=== PATIENT | male | born 1965 | race Caucasian/White ===

== ENCOUNTER → 2016-11-04 | Outpatient (CLI) | payer OTHER ==
[~2016-11-04] MED LIST: CINN500C9 PO; DRIS50002 PO; EXCETAB80 PO; EXTR500C4 PO; GLIP5TAB8 PO; GLUC500T3 OR; GLUC850T OR; IBUP600T OR; IBUP600T26 PO; LISI10TA4 PO; METF1000 PO; MULTIVIT PO; OMEG100011 PO; PRIL40CA OR; VIT D 4000 PO; VITA-130 PO; VITA500C OR
[2016-11-04 12:16] LABS: ALBUMIN/GLOBULIN RATIO 1.14 (1.00-1.93); ALKALINE PHOSPHATASE 101 U/L (45-117); ALT/SGPT 117 U/L (12-78); ANION GAP 10 MEQ/L (8-16); AST/SGOT 47 U/L (15-37); BILIRUBIN,TOTAL 0.4 MG/DL (0.2-1.0); BLOOD UREA NITROGEN 18 MG/DL (7-18); CALCIUM LEVEL 8.8 MG/DL (8.5-10.1); CARBON DIOXIDE LEVEL 27 MEQ/L (21-32); CHLORIDE LEVEL 104 MEQ/L (98-107); CHOLESTEROL LEVEL 124 MG/DL (<200); CREATININE FOR GFR 0.65 MG/DL (0.70-1.30); GLOMERULAR FILTRATION RATE > 60.0 (>56); GLUCOSE, FASTING 81 MG/DL (70-105); POTASSIUM SERUM 4.1 MEQ/L (3.5-5.1); SODIUM LEVEL 141 MEQ/L (136-145); TOTAL PROTEIN 7.5 GM/DL (6.4-8.2); TRIGLYCERIDES LEVEL 121 MG/DL (<150)
== END | disposition home or self-care (01) ==
LOC: M LRY 08:56
PROVIDERS: ATTEND Emergency Medicine
DX: E11.9 Type 2 diabetes mellitus without complications (principal); I10 Essential (primary) hypertension; E78.2 Mixed hyperlipidemia; E55.9 Vitamin D deficiency, unspecified

== ENCOUNTER → 2017-01-27 | Outpatient (CLI) | payer OTHER ==
[2017-01-27 19:04] LABS: ALBUMIN 4.1 GM/DL (3.2-5.2); ALBUMIN/GLOBULIN RATIO 1.14 (1.00-1.93); ALKALINE PHOSPHATASE 94 U/L (45-117); ALT/SGPT 97 U/L (12-78); ANION GAP 7 MEQ/L (8-16); AST/SGOT 43 U/L (15-37); BILIRUBIN,TOTAL 0.5 MG/DL (0.2-1.0); BLOOD UREA NITROGEN 17 MG/DL (7-18); CALCIUM LEVEL 9.1 MG/DL (8.5-10.1); CARBON DIOXIDE LEVEL 30 MEQ/L (21-32); CHLORIDE LEVEL 107 MEQ/L (98-107); CHOLESTEROL LEVEL 129 MG/DL (<200); CREATININE FOR GFR 0.65 MG/DL (0.70-1.30); GLOMERULAR FILTRATION RATE > 60.0 (>56); GLUCOSE, FASTING 77 MG/DL (70-105); POTASSIUM SERUM 4.1 MEQ/L (3.5-5.1); SODIUM LEVEL 144 MEQ/L (136-145); TOTAL PROTEIN 7.7 GM/DL (6.4-8.2); TRIGLYCERIDES LEVEL 131 MG/DL (<150)
== END ==
LOC: M LRY 11:32
PROVIDERS: ATTEND Emergency Medicine
DX: E11.9 Type 2 diabetes mellitus without complications (principal); I10 Essential (primary) hypertension; E78.2 Mixed hyperlipidemia

== ENCOUNTER → 2018-03-15 | Outpatient (CLI) | payer OTHER ==
[2018-03-15 18:47] LABS: ALBUMIN 4.1 GM/DL (3.2-5.2); ALBUMIN/GLOBULIN RATIO 1.21 (1.00-1.93); ALKALINE PHOSPHATASE 88 U/L (45-117); ALT/SGPT 139 U/L (12-78); ANION GAP 7 MEQ/L (8-16); AST/SGOT 56 U/L (7-37); BILIRUBIN,TOTAL 0.6 MG/DL (0.2-1.0); BLOOD UREA NITROGEN 15 MG/DL (7-18); CALCIUM LEVEL 8.7 MG/DL (8.5-10.1); CARBON DIOXIDE LEVEL 28 MEQ/L (21-32); CHLORIDE LEVEL 104 MEQ/L (98-107); CHOLESTEROL LEVEL 113 MG/DL (<200); CREATININE FOR GFR 0.65 MG/DL (0.70-1.30); GLOMERULAR FILTRATION RATE > 60.0 (>56); GLUCOSE, FASTING 83 MG/DL (70-100); HDL CHOLESTEROL 25 MG/DL (>40); NON-HDL-C 88 MG/DL; POTASSIUM SERUM 3.9 MEQ/L (3.5-5.1); SODIUM LEVEL 139 MEQ/L (136-145); TOTAL PROTEIN 7.5 GM/DL (6.4-8.2); TRIGLYCERIDES LEVEL 165 MG/DL (<150)
[2018-03-15 19:09] LABS: ESTIMATED AVERAGE GLUCOSE 186 MG/DL (60-110); HEMOGLOBIN A1c 8.1 %
== END ==
LOC: M LRY 10:40
DX: E11.9 Type 2 diabetes mellitus without complications (principal); I10 Essential (primary) hypertension; E78.2 Mixed hyperlipidemia
CPT/HCPCS: 80053

== ENCOUNTER → 2018-07-01 | Outpatient (REF) | payer OTHER ==
[2018-07-06 10:28] LABS: HEPATITIS C VIRUS ABY INDEX 0.1 INDEX (<0.8)
[2018-07-06 10:28] LABS: HEPATITIS A ANTIBODY IGM NEGATIVE (NEGATIVE); HEPATITIS B CORE ANTIBODY IGM NEGATIVE (NEGATIVE); HEPATITIS B SURFACE ANTIGEN NEGATIVE (NEGATIVE)
== END ==
LOC: M LAB REF 14:48
DX: R74.8 Abnormal levels of other serum enzymes (principal)

== ENCOUNTER 2018-09-05 13:34 | Emergency (ER) | payer OTHER | END 2018-09-05 14:51 | disposition home or self-care (01) | LOC: M ED 13:34 | DX: S00.03XA Contusion of scalp, initial encounter (principal); W01.0XXA Fall on same level from slipping, tripping and stumbling without subsequent striking against object, initial encounter; Y92.410 Unspecified street and highway as the place of occurrence of the external cause | CPT/HCPCS: 70450 ==

== ENCOUNTER → 2019-08-19 | Outpatient (CLI) | payer OTHER ==
[~2019-08-19] MED LIST changes: -DRIS50002 PO; +DRIS50003 PO; +IBUP-1022 PO; -IBUP600T26 PO; -METF1000 PO; +METF10004 PO; -VITA-130 PO; +VITA500T PO
--- NOTE | 2019-08-22 16:51 | SLEEPCENT ---
DATE OF PROCEDURE: 08/19/2019 ORDERED BY: KIMBERLEY Tobar Nocturnal polysomnography was performed for the titration of pressure therapy in this patient with a history of obstructive sleep apnea syndrome. For testing a ResMed F20 AirTouch full face mask of medium size was used, 4 cm of water pressure were applied to the circuit and the lights were extinguished. 7 hours and 58 minutes of data were reviewed. There were 450 minutes of sleep identified. Sleep latency was short at 2 minutes. Rapid eye movement (REM) latency was short at 57 minutes. Sleep architecture was good with five REM cycles. Overall sleep efficiency 95.8%. The patient's electrocardiogram showed a sinus rhythm with an average heart rate of 64 beats per minute. EEG showed normal waveforms for awake and sleep. Persistence of respiratory events prompted an increase in continuous positive airway pressure (CPAP) despite optimal mask fit and minimal air leak. The patient was changed to a bilevel device. Pressure was advanced to a maximal pressure of 22 over 18. Some mild hypopneic events were seen, but no significant oxygen desaturations were documented at this level. Some activity was noted throughout the study in the limb EMG leads but limb movement arousal index was only 4.3. IMPRESSION: Obstructive sleep apnea syndrome (G47.33). RECOMMENDATIONS: Nightly use of pressure therapy using a bilevel device, inspiratory 22 over expiratory 18.
== END ==
LOC: M SLEEP 20:00
PROVIDERS: ATTEND Nurse Practitioner Family
DX: G47.33 Obstructive sleep apnea (adult) (pediatric) (principal)

== ENCOUNTER → 2019-09-25 | Outpatient (REF) | payer OTHER | LOC: M LAB REF 13:08 | PROVIDERS: ATTEND Podiatrist | DX: L03.031 Cellulitis of right toe (principal) ==

== ENCOUNTER → 2019-10-16 | Outpatient (CLI) | payer OTHER ==
--- NOTE | 2019-10-16 10:10 | REP ---
Clinical: Right lower extremity pain and swelling . Technique: Cordon scale and color Doppler evaluation using linear high frequency transducer. Findings: Ultrasound examination of the right lower extremity deep venous structures from the common femoral vein to the popliteal vein demonstrates normal compressibility flow and wave patterns in response to respiration and augmentation. There is no evidence for deep venous thrombosis. Impression: No evidence for deep venous thrombosis. Electronically Signed by Arpan Flores MD 10/16/2019 10:02 A
== END ==
LOC: M RAD 09:06
PROVIDERS: ATTEND Podiatrist
DX: M79.604 Pain in right leg (principal)

== ENCOUNTER → 2019-12-16 | Outpatient (CLI) | payer OTHER ==
--- NOTE | 2019-12-17 08:32 | REP ---
MRI RIGHT ANKLE: TECHNIQUE: Sagittal proton density, STIR, axial proton density fat sat, T1, coronal proton density, STIR. The Achilles tendon is intact. Anterior tibial, peroneal, and flexor hallucis longus tendons are intact. There is mild fluid surrounding the flexor digitorum longus tendon suggesting mild tenosynovitis. There is moderate fluid surrounding the posterior tibial tendon suggesting tenosynovitis. In addition, the distal posterior tibial tendon demonstrates increased signal on T2-weighted images at its insertion suggesting a partial tear. Anterior and posterior talofibular, calcaneofibular, tibiofibular, and deltoid ligaments are intact. Plantar fascia is unremarkable, plantar tendon is intact. Ill-defined soft tissue edema is seen posteromedially. Mild fluid is seen along the posterior tibiotalar joint. Nonspecific marrow edema is seen in the medial aspect of the distal tibia as well as throughout the talus. There is also marrow edema in the medial and anterior calcaneus. There is scattered subcortical marrow edema in the navicular and cuneiform bones. No chondral defect is seen along the talar dome. IMPRESSION: There appears to be a partial tear of the distal posterior tibial tendon at its insertion onto the navicular. There appears to be associated tenosynovitis. There is probable tenosynovitis of flexor digitorum longus tendon. Nonspecific marrow edema is seen in the medial aspect of the distal tibia, throughout the talus, and the medial and anterior calcaneus, and also in a subcortical location in the navicular and cuneiform bones. Diffuse soft tissue edema is noted posteromedially. Electronically Signed by David Cordon MD 12/17/2019 06:19 P
== END ==
LOC: M RAD 08:43
PROVIDERS: ATTEND Podiatrist
DX: M66.371 Spontaneous rupture of flexor tendons, right ankle and foot (principal)

== ENCOUNTER → 2020-03-19 | Outpatient (CLI) | payer OTHER ==
[~2020-03-19] MED LIST changes: +ACET160S3 PO; +INVO300T PO; +MAPA500C PO; +MULTCAP PO; +OZEM2INJ2 SC; +PROTPAK PO; +VENTAER INH; +VITA-243 PO; -VITA500T PO
== END ==
LOC: M LABSMTC 09:54
PROVIDERS: ATTEND Anesthesiology
DX: Z01.818 Encounter for other preprocedural examination (principal); Z11.59 Encounter for screening for other viral diseases
CPT/HCPCS: C9803; U0003

== ENCOUNTER 2020-03-22 07:36 | Day surgery (SDC) | payer OTHER ==
[~2020-03-22] VITALS: Ht 180.3 cm; Wt 122.5 kg
[~2020-03-22 07:36] MED LIST changes: +BACITRACIN PWD 50,000 UNITS VIAL As Ordered ONE; +BUPIVACAINE HCL 0.5% 30 ML VIAL As Ordered ONE; +LIDOCAINE 2% MDV 20ML VIAL As Ordered ONE; +LR 1,000 ML IV SCH; -MAPA500C PO; +NEOSPORIN GU IRRIG 20 ML VIAL As Ordered ONE; +ceFAZolin SOD 1 GM in D5W MINI-BAG PLUS 50 ML IV ONE; +ceFAZolin SOD 2 GM in IV 1 EA IV ONE; +dexameTHASONE 4 MG/ML 1ML VIAL (J1100 PER 1MG) As Ordered ONE
[2020-03-22] MEDS ORDERED: MAPA500C PO (08:02)
[2020-03-22] MEDS ORDERED: LIDOCAINE 2% 100MG/5ML SDV (FOR ANES.) As Ordered ONE (08:20)
[2020-03-22] MEDS ORDERED: propofoL 200 MG/20 ML VIAL As Ordered ONE ×3 (08:20→10:38)
[2020-03-22] MEDS ORDERED: MIDAZOLAM INJ 2MG/2ML VIAL (J2250 PER 1MG) As Ordered ONE (08:21)
[2020-03-22] MEDS ORDERED: fentaNYL 100 MCG/2 ML INJECTION (J3010) As Ordered ONE (08:21)
[2020-03-22] MEDS ORDERED: ACETAMINOPHEN 1000MG 100ML IV BTL (OFIRMEV) (J0131 PER 10MG) As Ordered ONE (09:59)
[2020-03-22] MEDS ORDERED: KETOROLAC 60 MG/2 ML VIAL As Ordered ONE (10:47)
[2020-03-22] MEDS ORDERED: ONDANSETRON 4MG/2ML VIAL As Ordered ONE (10:47)
[2020-03-22 12:25] VITALS: BP 122/73
--- NOTE | 2020-03-22 16:45 | REP ---
REASON: Status post bunionectomy. Three images were obtained. Fixation pins are seen affixing and fusing digits 2 through 4, inclusive. There is a single screw affixing a derotational osteotomy site safety manager of the 1st metatarsal. The examination is limited by overlying casting material. Electronically Signed by Gaurang Haley DO 03/22/2020 05:13 P
--- NOTE | 2020-03-27 12:23 | RO ---
DATE OF PROCEDURE: 03/22/2020 PREPROCEDURE DIAGNOSES: Hallux valgus metatarsus primus varus deformity, right foot. Hammertoe deformity digits 2, 3, 4, and 5 right foot. POSTPROCEDURE DIAGNOSES: Hallux valgus metatarsus primus varus deformity, right foot. Hammertoe deformity digits 2, 3, 4, and 5 right foot. PROCEDURES PERFORMED: 1. Niki bunionectomy with internal screw fixation. 2. Proximal interphalangeal joint arthroplasty, 2nd toe right foot. 3. Proximal interphalangeal joint arthroplasty, 3rd toe right foot. 4. Proximal interphalangeal joint arthroplasty, 4th toe right foot. 5. Proximal interphalangeal joint arthroplasty 5th toe right foot. 6. Extensor capsulotomy 2nd metatarsophalangeal joint right foot. 7. Extensor capsulotomy 3rd metatarsophalangeal joint right foot. 8. Extensor capsulotomy 4th metatarsophalangeal joint right foot. SURGEON: Dr. Samuel Chacon. TIN POURER: None. ANESTHESIA: Local with monitored anesthesia care (MAC). HEMOSTASIS: Ankle pneumatic tourniquet at 225 mmHg for 82 minutes. HARDWARE UTILIZED: Arthrex headless 3.0 x 30 mm compression screw and 0.045 wire times three. DESCRIPTION OF PROCEDURE: On 03/22/2020, this 54-year-old male was taken from his hospital room to the operating room and placed on the operating room table in supine position. Following the induction of IV sedation and local and regional anesthesia, the right lower extremity was prepped and draped in the usual aseptic manner. Attention was directed to the patient's right foot where there was noted to be a moderate hallux valgus deformity. At this time, the following procedure was performed. NIKI BUNIONECTOMY, INTERNAL SCREW FIXATION 3.0 MM X 30 MM X 1 RIGHT FOOT: Attention was directed to the patient's right foot. There was noted to be a hallux valgus deformity. At this time, a 7 cm incision was placed over the first metatarsophalangeal joint. The incision was deepened to the subcutaneous tissues, and all coursing venous tributaries were identified, underscored, clamped, cut ligated, and electrocoagulated as necessary. A linear capsulotomy was performed in the same plane as the original skin incision. The capsule and periosteal structures were then dissected free in one continuous layer, dorsally, medially and laterally, thus creating a capsular periosteal type envelope. This delivered into view the hypertrophied medial eminence of the first metatarsal which was osteotomized from distal to plantar through and through. Attention was directed into the medial surface of the 1st intermetatarsal and the following Niki osteotomy was performed. This was with a long plantar wing and a short dorsal wing. Attention was directed to the distal metaphysis where this V-shaped osteotomy was created from medial to lateral through and through and this was transposed approximately 30% width of the shaft of the 1st metatarsal and then fixated with a 3.0 x 30 mm headless compression screw. The osteotomy was noted to be stable in all three cardinal planes. The redundant cortical spike was then osteotomized from the dorsal to plantar, through and through. The wound was flushed with copious amounts of dilute bacitracin, neomycin and polymyxin B solution. Attention was directed toward closure where the capsular structures were coapted and maintained using #2-0 Monocryl in a simple interrupted type fashion. The subcutaneous tissues were coapted and maintained using #4-0 Monocryl in a simple interrupted type fashion. Skin incisions were coapted and maintained using #4-0 Prolene in a simple interrupted fashion. Attention was then directed to the patient's 2nd toe where the following procedure was performed. PROXIMAL INTERPHALAGEAL JOINT ARTHROPLASTY WITH EXTERNAL WIRE FIXATION 0.045 TIMES ONE, 2ND TOE RIGHT FOOT: Attention was directed to the patient's 2nd toe where there was noted to be a hammertoe deformity. At this time, a 3 cm incision was placed over the proximal interphalangeal joint. The incision was deepened to the subcutaneous tissues and all coursing tributaries were identified, underscored, clamp, cut, ligated and electrocoagulated as necessary. A linear tenotomy and capsulotomy was then performed at the proximal interphalangeal joint. The medial and lateral collateral ligaments are sharply dissected free from the head of the proximal phalanx. Utilizing a power saw and osteotomy was performed in the anatomical length of the proximal from dorsal to planar, medial to lateral through and through. Attention was directed to the patient's middle phalanx where the cartilage was removed from dorsal to planar through and through. This was extirpated from the wound. The wound was flushed with copious amount of dilute bacitracin, neomycin and polymyxin B solution. There was still noted to be a contracture at the metatarsophalangeal joint. Therefore, the following procedure was performed. EXTENSOR CAPSULOTOMY 2ND METATARSOPHALANGEAL JOINT RIGHT FOOT: Attention was directed to the patient's metatarsophalangeal joint where a stab incision was placed over the dorsal aspect of the 2nd metatarsophalangeal joint. The extensor tendon then was visualized and utilizing the previous excision, the extensor expansion and macias was dissected and the tendon to the 2nd toe was then pulled through the stab incision. This allowed access to the metatarsophalangeal joint capsule without risk to damaging the extensor tendon. The dorsal capsulotomy was then performed. The wound was then flushed with copious amounts of dilute bacitracin, neomycin and polymyxin B solution. Utilizing a hemostat, the tendon was then brought back into its original position. Utilizing a 0.045 wire, a wire was driven percutaneously through the middle and distal phalanx and then retrograded into the proximal phalanx utilizing C-arm imagery and proximal to the joint metatarsophalangeal joint. The wire was bent in a protective gall and placed in the distal end of the wire. The procedure performed on the 4th toe is now performed on the 5th toe with the following variations: No K-wire was utilized to stabilize the 5th toe and the cartilage was not removed from the middle phalanx. Following the completion of the surgical procedure 4 mg of dexamethasone sodium phosphorus was instilled in the proximal surgical site. Attention was direct to bandaging with sterile compressive bandage applied consisting of Adaptic, 4x4's, splints and Koban. Ankle pneumatic tourniquet was rapidly deflated and instantaneous capillary filling was noted to digits 1-5 to the patient's right foot. The patient after having tolerated the procedure well was taken to the recovery room for further monitoring by the anesthesia department. Postoperative instructions were given upon discharge. This was additionally reinforced with Steri-Strips. Following the completion of the surgical procedure, approximately 4 mg of dexamethasone sodium phosphorous was instilled proximal to the surgical site. Attention was directed toward closure where the extensor tendon was coapted and maintained utilizing #4-0 SUPERAMID in a four-stranded core repair in a Hameed fashion. The skin was coapted and maintained utilizing #4-0 Prolene in a simple interrupted type fashion. The skin over the 2nd metatarsophalangeal joint capsulotomy was repaired with #4-0 Prolene in a simple interrupted type fashion. Attention was then directed to the 3rd toe where the following procedure was performed. PROXIMAL INTERPHALAGEAL JOINT ARTHROPLASTY WITH EXTERNAL WIRE FIXATION 0.045 TIMES ONE, 3RD TOE RIGHT FOOT: Attention was directed to the patient's 3rd toe right foot where the procedure was performed on the 2nd toe was now performed on the 3rd toe without variation. or deletion except for that of anatomical location. Attention was then directed to the 4th toe where the following procedure was performed. PROXIMAL INTERPHALAGEAL JOINT ARTHROPLASTY WITH EXTERNAL WIRE FIXATION 0.045 TIMES ONE, 4TH TOE RIGHT FOOT: Attention was directed to the patient's 4th toe right foot where the procedure was performed on the 2nd toe was now performed on the 4th toe without variation or deletion. The only exception being that of anatomical location. Attention was then directed to the 5th toe where the following procedure was performed. PROXIMAL INTERPHALAGEAL JOINT ARTHROPLASTY 5TH TOE RIGHT FOOT: Attention was directed to the patient's 5th toe right foot where the procedure was performed on the 2nd toe was now performed on the 5th toe with the following variation. No external wire was utilized. Attention was then directed to the 3rd metatarsophalangeal joint, where the following procedure was performed. EXTENSOR CAPSULOTOMY 3RD METATARSOPHALANGEAL JOINT, RIGHT FOOT: Attention was directed to the patient's 3rd metatarsophalangeal joint where the procedure performed on the second metatarsophalangeal joint was now performed on the 3rd metatarsophalangeal joint without variation or deletion. The only exception being anatomical location. Attention was then directed to the 3rd metatarsophalangeal joint, where the following procedure was performed. EXTENSOR CAPSULOTOMY 4TH METATARSOPHALANGEAL JOINT, RIGHT FOOT: Attention was directed to the patient's 4th metatarsophalangeal joint where the procedure performed on the second metatarsophalangeal joint was now performed on the 4th metatarsophalangeal joint without variation or deletion. The only exception being anatomical location. Attention was then directed towards bandaging where a sterile compressive bandage applied consisting of Adaptic, 4x4's, 4 x 4 splints, Donaldo and Kerlix. Ankle pneumatic tourniquet was rapidly deflated and instantaneous capillary filling was noted to digits 1-5 to the patient's right foot. A fiberglass cast was then applied to the patient's right foot. The patient after having tolerated the procedure well was taken to the recovery room, vital signs stable, afebrile for further monitoring by the anesthesia department. All surgical specimens during the operative procedure were sent to pathology for gross or microscopic examination. Postoperative instructions were given upon discharge.
== END 2020-03-22 13:05 | disposition home or self-care (01) ==
LOC: M SDC 07:36
PROVIDERS: ATTEND Podiatrist
DX: M20.11 Hallux valgus (acquired), right foot (principal); M20.41 Other hammer toe(s) (acquired), right foot; I10 Essential (primary) hypertension; J45.909 Unspecified asthma, uncomplicated; G47.30 Sleep apnea, unspecified; M10.9 Gout, unspecified; E11.9 Type 2 diabetes mellitus without complications; Z79.84 Long term (current) use of oral hypoglycemic drugs; Z79.899 Other long term (current) drug therapy; Z91.010 Allergy to peanuts; Z91.018 Allergy to other foods
CPT/HCPCS: 28270; 28285; 28296; 73630; 76000; 88300; 97116; C1713; J0131; J0690; J1100; J1885; J2250; J2405; J3010

== ENCOUNTER → 2021-01-17 | Outpatient (CLI) | payer OTHER ==
[~2021-01-17] MED LIST changes: -BACITRACIN PWD 50,000 UNITS VIAL As Ordered ONE; -BUPIVACAINE HCL 0.5% 30 ML VIAL As Ordered ONE; -LIDOCAINE 2% MDV 20ML VIAL As Ordered ONE; +LISI10TA22 PO; -LR 1,000 ML IV SCH; +MAPA500C PO; -NEOSPORIN GU IRRIG 20 ML VIAL As Ordered ONE; -ceFAZolin SOD 1 GM in D5W MINI-BAG PLUS 50 ML IV ONE; -ceFAZolin SOD 2 GM in IV 1 EA IV ONE; -dexameTHASONE 4 MG/ML 1ML VIAL (J1100 PER 1MG) As Ordered ONE
--- NOTE | 2021-01-17 11:02 | REPVR ---
PROCEDURE INFORMATION: Exam: MR Cervical Spine Without Contrast Exam date and time: 01/17/2021 10:20 AM Age: 55 years old Clinical indication: Neck pain; Additional info: Cervical disc degeneration TECHNIQUE: Imaging protocol: Multiplanar magnetic resonance images of the cervical spine without contrast. COMPARISON: CT Spine,cervical w/o contrast 09/05/2018 1:51 PM FINDINGS: Vertebrae: There is straightening of the cervical spine which could be secondary to positioning or muscle spasm. The cervical vertebral bodies are normal height and alignment.No acute fracture or dislocation is seen.The atlantoaxial articulation is normal. Spinal cord: The cervical spinal cord is normal in thickness and signal intensity.There is no cord compression or intramedullary signal abnormality. Spinal epidural space: There is no evidence for epidural mass or hemorrhage. C2-C3: No significant disc disease. No significant spinal stenosis. C3-C4: There is no significant degenerative disc herniation.The spinal canal and neural foramina are patent and without significant stenosis. C4-C5: Markedly reduced in height and T2 signal indicating degeneration. Mild degenerative endplate changes. Small diffuse posterior herniation.There is bilateral uncovertebral hypertrophic changes.The facet joints demonstrate mild degenerative hypertrophy and sclerosis.There is mild spinal canal narrowing, with an AP canal dimension of 10 mm. There is severe bilateral foraminal stenosis. There is compression on the bilateral exiting nerve root. C5-C6: Markedly reduced in height and T2 signal indicating degeneration. Mild degenerative endplate changes. Small diffuse posterior herniation.There is bilateral uncovertebral hypertrophic changes.The facet joints demonstrate mild degenerative hypertrophy and sclerosis.There is mild spinal canal narrowing, with an AP canal dimension of 10 mm. There is severe bilateral foraminal stenosis. There is compression on the bilateral exiting nerve root. C6-C7: There is a mild diffuse posterior bulge causing mild effacement of the thecal sac.The facet joints demonstrate mild degenerative hypertrophy and sclerosis.There is no evidence of spinal canal narrowing.There is mild bilateral foraminal stenosis. C7-T1: There is no significant degenerative disc herniation.The spinal canal and neural foramina are patent and without significant stenosis. Soft tissues: The prevertebral soft tissues appear normal. Brain: The visualized brain parenchyma is unremarkable. Vertebral arteries: Expected flow voids in the vertebral arteries. IMPRESSION: 1. MRI of the cervical spine reveals multilevel degenerative spondylitic changes and degenerative disc disease, most significant at C4-C5 and C5-C6 levels as described above. 2. The cervical spinal cord is normal in thickness and signal intensity.There is no cord compression or intramedullary signal abnormality. Electronically signed by: Gerald Kiser On 01/17/2021 11:02:05 AM
== END ==
LOC: M RAD 09:11
PROVIDERS: ATTEND Physician Assistant
DX: M50.321 Other cervical disc degeneration at C4-C5 level (principal); M50.322 Other cervical disc degeneration at C5-C6 level

== ENCOUNTER → 2021-07-28 | Outpatient (REF) | payer OTHER | LOC: M LAB REF 15:36 | PROVIDERS: ATTEND Podiatrist | DX: M79.671 Pain in right foot (principal); L97.512 Non-pressure chronic ulcer of other part of right foot with fat layer exposed ==

== ENCOUNTER → 2022-08-21 | Outpatient (CLI) | payer OTHER ==
[2022-08-21 17:17] LABS: BASO # 0.1 10^3/uL (0.0-0.2); BASO % 0.6 % (0.0-1.0); EOS # 0.1 10^3/uL (0.0-0.5); EOS % 1.8 % (0.0-3.0); HEMATOCRIT 49.7 % (42.0-52.0); HEMOGLOBIN 15.8 g/dl (13.5-17.5); LYMPH # 2.4 10^3/uL (1.5-5.0); LYMPH % 30.7 % (24.0-44.0); MEAN CORPUSCULAR HEMOGLOBIN 29.7 pg (27.0-33.0); MEAN CORPUSCULAR HGB CONC 31.8 g/dl (32.0-36.5); MEAN CORPUSCULAR VOLUME 93.4 fl (80.0-96.0); MONO # 0.6 10^3/uL (0.0-0.8); NEUTROPHILS # 4.6 10^3/uL (1.5-8.5); NEUTROPHILS % 58.3 % (36.0-66.0); PLATELET COUNT, AUTOMATED 163 10^3/uL (150-450); RED BLOOD COUNT 5.32 10^6/uL (4.30-6.10)
[2022-08-21 17:28] LABS: HEMOGLOBIN A1c 7.9 %
[2022-08-21 17:39] LABS: ALBUMIN 4.4 GM/DL (3.2-5.2); BLOOD UREA NITROGEN 14 MG/DL (7-18); CALCIUM LEVEL 9.7 MG/DL (8.5-10.1); CARBON DIOXIDE LEVEL 27 MEQ/L (21-32); CHLORIDE LEVEL 103 MEQ/L (98-107); CHOLESTEROL LEVEL 118 MG/DL (<200); CHOLESTEROL RISK RATIO 3.806 (<5); CREATININE FOR GFR 0.67 MG/DL (0.70-1.30); GLOMERULAR FILTRATION RATE > 60.0 (>56); GLUCOSE, FASTING 139 MG/DL (70-100); HDL CHOLESTEROL 31 MG/DL (>40); LDL CHOLESTEROL 39 MG/DL (<100); NON-HDL-C 87 MG/DL; PHOSPHORUS LEVEL 3.5 MG/DL (2.5-4.9); POTASSIUM SERUM 4.5 MEQ/L (3.5-5.1); SODIUM LEVEL 139 MEQ/L (136-145); TRIGLYCERIDES LEVEL 239 MG/DL (<150)
== END ==
LOC: M WUC 10:31
PROVIDERS: ATTEND Physician Assistant
DX: E78.5 Hyperlipidemia, unspecified (principal); I10 Essential (primary) hypertension; E11.9 Type 2 diabetes mellitus without complications; F52.21 Male erectile disorder

== ENCOUNTER → 2022-09-08 | Outpatient (REF) | payer OTHER | LOC: M LAB REF 17:29 | PROVIDERS: ATTEND Podiatrist | DX: M79.671 Pain in right foot (principal) ==

== ENCOUNTER → 2022-11-13 | Outpatient (CLI) | payer OTHER ==
[~2022-11-13] MED LIST changes: +LIDOCAINE 1% MDV 20ML VIAL As Ordered ONE; +methylPREDNISolone SUSP 40MG/ML 1ML VIAL (DEPO MEDROL) As Ordered ONE
== END ==
LOC: M IRPRO 08:06
PROVIDERS: ATTEND Physician Assistant
DX: M75.21 Bicipital tendinitis, right shoulder (principal)
CPT/HCPCS: 20206; 76942; J1030

== ENCOUNTER → 2022-11-23 | Outpatient (CLI) | payer OTHER ==
[~2022-11-23] MED LIST changes: -LIDOCAINE 1% MDV 20ML VIAL As Ordered ONE; -methylPREDNISolone SUSP 40MG/ML 1ML VIAL (DEPO MEDROL) As Ordered ONE
[2022-11-23 09:39] LABS: BASO # 0.1 10^3/uL (0.0-0.2); BASO % 0.6 % (0.0-1.0); EOS # 0.1 10^3/uL (0.0-0.5); EOS % 1.3 % (0.0-3.0); HEMATOCRIT 48.6 % (42.0-52.0); HEMOGLOBIN 15.6 g/dl (13.5-17.5); LYMPH # 2.6 10^3/uL (1.5-5.0); LYMPH % 30.5 % (24.0-44.0); MEAN CORPUSCULAR HEMOGLOBIN 29.8 pg (27.0-33.0); MEAN CORPUSCULAR HGB CONC 32.1 g/dl (32.0-36.5); MEAN CORPUSCULAR VOLUME 92.7 fl (80.0-96.0); MONO # 0.7 10^3/uL (0.0-0.8); MONO % 7.8 % (2.0-8.0); NEUTROPHILS # 5.1 10^3/uL (1.5-8.5); NEUTROPHILS % 59.3 % (36.0-66.0); PLATELET COUNT, AUTOMATED 161 10^3/uL (150-450); RED BLOOD COUNT 5.24 10^6/uL (4.30-6.10); WHITE BLOOD COUNT 8.6 10^3/uL (4.0-10.0)
[2022-11-23 10:07] LABS: ALBUMIN 4.2 G/DL (3.2-5.2); ALKALINE PHOSPHATASE 92 U/L (46-116); ALT/SGPT 66 U/L (7.0-40); AST/SGOT 32 U/L (<34); BILIRUBIN,TOTAL 0.6 MG/DL (0.3-1.2); BLOOD UREA NITROGEN 24 MG/DL (9-23); CALCIUM LEVEL 9.5 MG/DL (8.5-10.1); CARBON DIOXIDE LEVEL 29 MMOL/L (20-31); CHLORIDE LEVEL 103 MMOL/L (98-107); CHOLESTEROL LEVEL 103 MG/DL (<200); CREATININE FOR GFR 0.61 MG/DL (0.70-1.30); GLOMERULAR FILTRATION RATE > 60.0 (>56); GLUCOSE, FASTING 117 MG/DL (60-100); HDL CHOLESTEROL 26.4 MG/DL (>40); LDL CHOLESTEROL 38.8 MG/DL (<100); NON-HDL-C 77 MG/DL; POTASSIUM SERUM 4.6 MMOL/L (3.5-5.1); SODIUM LEVEL 139 MMOL/L (136-145); TOTAL PROTEIN 7.6 G/DL (5.7-8.2); TRIGLYCERIDES LEVEL 189 MG/DL (<150)
[2022-11-23 10:08] LABS: FREE T4 1.03 NG/DL (0.89-1.76); THYROID STIMULATING HORMONE 1.564 uIU/ML (0.55-4.78)
[2022-11-23 10:56] LABS: HEMOGLOBIN A1c 6.6 % (4.0-6.0)
== END ==
LOC: M WUC 08:09
PROVIDERS: ATTEND Physician Assistant
DX: I10 Essential (primary) hypertension (principal); E75.5 Other lipid storage disorders; E11.9 Type 2 diabetes mellitus without complications; R53.83 Other fatigue

== ENCOUNTER → 2023-02-16 | Outpatient (REF) | payer OTHER | LOC: M LAB REF 10:05 | PROVIDERS: ATTEND Podiatrist | DX: L03.031 Cellulitis of right toe (principal) ==

== ENCOUNTER → 2023-04-29 | Outpatient (REF) | payer OTHER | LOC: M LAB REF 16:18 | PROVIDERS: ATTEND Podiatrist | DX: L03.129 Acute lymphangitis of unspecified part of limb (principal) ==

== ENCOUNTER → 2023-06-25 | Outpatient (CLI) | payer OTHER ==
[2023-06-25 09:30] LABS: BASO % 0.5 % (0.0-1.0); EOS # 0.2 10^3/uL (0.0-0.5); EOS % 2.4 % (0.0-3.0); HEMATOCRIT 44.8 % (42.0-52.0); HEMOGLOBIN 14.7 g/dl (13.5-17.5); LYMPH # 2.1 10^3/uL (1.5-5.0); LYMPH % 32.2 % (24.0-44.0); MEAN CORPUSCULAR HGB CONC 32.8 g/dl (32.0-36.5); MEAN CORPUSCULAR VOLUME 91.4 fl (80.0-96.0); MONO # 0.6 10^3/uL (0.0-0.8); MONO % 9.1 % (2.0-8.0); NEUTROPHILS # 3.7 10^3/uL (1.5-8.5); NEUTROPHILS % 55.5 % (36.0-66.0); PLATELET COUNT, AUTOMATED 149 10^3/uL (150-450); WHITE BLOOD COUNT 6.6 10^3/uL (4.0-10.0)
[2023-06-25 09:51] LABS: HEMOGLOBIN A1c 7.5 % (4.0-6.0)
[2023-06-25 12:16] LABS: ALKALINE PHOSPHATASE 97 U/L (46-116); ALT/SGPT 79 U/L (7.0-40); AST/SGOT 30 U/L (<34); BILIRUBIN,TOTAL 0.5 MG/DL (0.3-1.2); BLOOD UREA NITROGEN 12 MG/DL (9-23); CALCIUM LEVEL 9.2 MG/DL (8.3-10.6); CARBON DIOXIDE LEVEL 29 MMOL/L (20-31); CHLORIDE LEVEL 103 MMOL/L (98-107); CHOLESTEROL LEVEL 77 MG/DL (<200); CHOLESTEROL RISK RATIO 3.16 (<5); CREATININE FOR GFR 0.62 MG/DL (0.70-1.30); GLOMERULAR FILTRATION RATE > 60.0 (>49); GLUCOSE, FASTING 128 MG/DL (74-106); HDL CHOLESTEROL 24.3 MG/DL (>40); LDL CHOLESTEROL 19.3 MG/DL (<100); MAGNESIUM LEVEL 2.1 MG/DL (1.8-2.4); NON-HDL-C 52.7 MG/DL; POTASSIUM SERUM 4.4 MMOL/L (3.5-5.1); SODIUM LEVEL 140 MMOL/L (136-145); THYROID STIMULATING HORMONE 2.117 uIU/ML (0.55-4.78); TOTAL PROTEIN 7.4 G/DL (5.7-8.2); TRIGLYCERIDES LEVEL 167 MG/DL (<150)
== END ==
LOC: M WUC 08:02
PROVIDERS: ATTEND Nurse Practitioner Adult Health
DX: I10 Essential (primary) hypertension (principal); E78.5 Hyperlipidemia, unspecified; E11.9 Type 2 diabetes mellitus without complications; R53.83 Other fatigue

== ENCOUNTER → 2023-09-17 | Outpatient (CLI) | payer OTHER ==
[~2023-09-17] MED LIST changes: +GLIP5TAB17 PO; -GLIP5TAB8 PO
[2023-09-17 16:49] LABS: HEMATOCRIT 48.3 % (42.0-52.0); HEMOGLOBIN 15.9 g/dl (13.5-17.5); MEAN CORPUSCULAR HEMOGLOBIN 30.2 pg (27.0-33.0); MEAN CORPUSCULAR HGB CONC 32.9 g/dl (32.0-36.5); MEAN CORPUSCULAR VOLUME 91.7 fl (80.0-96.0); PLATELET COUNT, AUTOMATED 165 10^3/uL (150-450); RED BLOOD COUNT 5.27 10^6/uL (4.30-6.10); WHITE BLOOD COUNT 8.9 10^3/uL (4.0-10.0)
[2023-09-17 17:08] LABS: HEMOGLOBIN A1c 7.9 % (4.0-6.0)
[2023-09-17 17:19] LABS: ALBUMIN 4.1 G/DL (3.2-5.2); ALKALINE PHOSPHATASE 102 U/L (46-116); ALT/SGPT 83 U/L (7.0-40); AST/SGOT 37 U/L (<34); BILIRUBIN,TOTAL 0.7 MG/DL (0.3-1.2); BLOOD UREA NITROGEN 13 MG/DL (9-23); CALCIUM LEVEL 9.1 MG/DL (8.3-10.6); CARBON DIOXIDE LEVEL 29 MMOL/L (20-31); CHLORIDE LEVEL 102 MMOL/L (98-107); CHOLESTEROL LEVEL 90 MG/DL (<200); CHOLESTEROL RISK RATIO 3.65 (<5); CREATININE FOR GFR 0.58 MG/DL (0.70-1.30); GLOMERULAR FILTRATION RATE > 60.0 (>49); GLUCOSE, FASTING 143 MG/DL (74-106); HDL CHOLESTEROL 24.6 MG/DL (>40); LDL CHOLESTEROL 20.6 MG/DL (<100); NON-HDL-C 65.4 MG/DL; POTASSIUM SERUM 4.2 MMOL/L (3.5-5.1); SODIUM LEVEL 140 MMOL/L (136-145); TOTAL PROTEIN 7.3 G/DL (5.7-8.2); TRIGLYCERIDES LEVEL 224 MG/DL (<150)
== END ==
LOC: M PLALAB 14:25
PROVIDERS: ATTEND Nurse Practitioner Adult Health
DX: E11.9 Type 2 diabetes mellitus without complications (principal); K21.9 Gastro-esophageal reflux disease without esophagitis; I10 Essential (primary) hypertension; J44.9 Chronic obstructive pulmonary disease, unspecified; E78.5 Hyperlipidemia, unspecified

== ENCOUNTER → 2023-11-01 | Outpatient (REF) | payer OTHER | LOC: M LAB REF 16:09 | PROVIDERS: ATTEND Podiatrist | DX: L03.031 Cellulitis of right toe (principal); B95.7 Other staphylococcus as the cause of diseases classified elsewhere ==

== ENCOUNTER → 2023-11-22 | Outpatient (REF) | payer OTHER | LOC: M LAB REF 16:22 | PROVIDERS: ATTEND Podiatrist | DX: L03.031 Cellulitis of right toe (principal) ==

== ENCOUNTER → 2023-12-16 | Outpatient (REF) | payer OTHER | LOC: M LAB REF 16:28 | PROVIDERS: ATTEND Podiatrist | DX: L03.031 Cellulitis of right toe (principal) ==

== ENCOUNTER → 2024-01-03 | Outpatient (CLI) | payer OTHER ==
[2024-01-03 12:16] LABS: HEMATOCRIT 46.9 % (42.0-52.0); HEMOGLOBIN 15.6 g/dl (13.5-17.5); MEAN CORPUSCULAR HEMOGLOBIN 30.2 pg (27.0-33.0); MEAN CORPUSCULAR HGB CONC 33.3 g/dl (32.0-36.5); MEAN CORPUSCULAR VOLUME 90.9 fl (80.0-96.0); PLATELET COUNT, AUTOMATED 167 10^3/uL (150-450); RED BLOOD COUNT 5.16 10^6/uL (4.30-6.10); WHITE BLOOD COUNT 11.9 10^3/uL (4.0-10.0)
[2024-01-03 12:43] LABS: ALBUMIN 4.3 G/DL (3.2-5.2); ALKALINE PHOSPHATASE 101 U/L (46-116); ALT/SGPT 72 U/L (7.0-40); AST/SGOT 28 U/L (<34); BILIRUBIN,TOTAL 0.6 MG/DL (0.3-1.2); BLOOD UREA NITROGEN 17 MG/DL (9-23); CALCIUM LEVEL 9.4 MG/DL (8.3-10.6); CARBON DIOXIDE LEVEL 28 MMOL/L (20-31); CHLORIDE LEVEL 105 MMOL/L (98-107); CHOLESTEROL LEVEL 80 MG/DL (<200); CHOLESTEROL RISK RATIO 3.68 (<5); CREATININE FOR GFR 0.65 MG/DL (0.70-1.30); GLOMERULAR FILTRATION RATE > 60.0 (>49); GLUCOSE, FASTING 141 MG/DL (74-106); HDL CHOLESTEROL 21.7 MG/DL (>40); LDL CHOLESTEROL 18.3 MG/DL (<100); NON-HDL-C 58.3 MG/DL; POTASSIUM SERUM 4.4 MMOL/L (3.5-5.1); SODIUM LEVEL 140 MMOL/L (136-145); TOTAL PROTEIN 7.4 G/DL (5.7-8.2); TRIGLYCERIDES LEVEL 200 MG/DL (<150)
[2024-01-03 12:47] LABS: HEMOGLOBIN A1c 8.4 % (4.0-6.0)
== END ==
LOC: M WUC 09:23
PROVIDERS: ATTEND Nurse Practitioner Adult Health
DX: E11.9 Type 2 diabetes mellitus without complications (principal); K21.9 Gastro-esophageal reflux disease without esophagitis; I10 Essential (primary) hypertension; J44.9 Chronic obstructive pulmonary disease, unspecified; E78.5 Hyperlipidemia, unspecified

== ENCOUNTER → 2024-02-14 | Outpatient (REF) | payer OTHER | LOC: M LAB REF 16:14 | PROVIDERS: ATTEND Podiatrist | DX: E11.621 Type 2 diabetes mellitus with foot ulcer (principal) ==

== ENCOUNTER → 2024-02-14 | Outpatient (REF) | payer OTHER ==
[2024-02-14 16:30] LABS: CREATININE, URINE 21.7 MG/DL; MAU/CREAT RATIO 64.5 MCG/MG (0.0-30.0)
== END ==
LOC: M LAB REF 15:20
PROVIDERS: ATTEND Nurse Practitioner Family
DX: E11.65 Type 2 diabetes mellitus with hyperglycemia (principal)

== ENCOUNTER → 2024-05-12 | Outpatient (REF) | payer OTHER | LOC: M SFHCPLAZ 14:09 | PROVIDERS: ATTEND Family Medicine | DX: E11.42 Type 2 diabetes mellitus with diabetic polyneuropathy (principal); I10 Essential (primary) hypertension ==

== ENCOUNTER → 2024-05-12 | Outpatient (CLI) | payer OTHER ==
[2024-05-12 15:53] LABS: HEMOGLOBIN A1c 7.4 % (4.0-6.0)
[2024-05-12 15:55] LABS: ALBUMIN 4.3 G/DL (3.2-5.2); ALKALINE PHOSPHATASE 97 U/L (46-116); ALT/SGPT 49 U/L (7.0-40); AST/SGOT 17 U/L (<34); BILIRUBIN,TOTAL 0.6 MG/DL (0.3-1.2); BLOOD UREA NITROGEN 16 MG/DL (9-23); CALCIUM LEVEL 9.3 MG/DL (8.3-10.6); CARBON DIOXIDE LEVEL 25 MMOL/L (20-31); CHLORIDE LEVEL 103 MMOL/L (98-107); CHOLESTEROL LEVEL 100 MG/DL (<200); CHOLESTEROL RISK RATIO 4.58 (<5); CREATININE FOR GFR 0.52 MG/DL (0.70-1.30); GLOMERULAR FILTRATION RATE > 60.0 (>49); GLUCOSE, FASTING 142 MG/DL (74-106); HDL CHOLESTEROL 21.8 MG/DL (>40); LDL CHOLESTEROL 25.4 MG/DL (<100); NON-HDL-C 78.2 MG/DL; POTASSIUM SERUM 3.8 MMOL/L (3.5-5.1); SODIUM LEVEL 138 MMOL/L (136-145); TOTAL PROTEIN 7.2 G/DL (5.7-8.2); TRIGLYCERIDES LEVEL 264 MG/DL (<150)
== END ==
LOC: M PLALAB 14:12
PROVIDERS: ATTEND Family Medicine
DX: E11.42 Type 2 diabetes mellitus with diabetic polyneuropathy (principal); I10 Essential (primary) hypertension

== ENCOUNTER → 2024-08-14 | Outpatient (CLI) | payer OTHER ==
[2024-08-14 17:20] LABS: PLATELET COUNT, AUTOMATED 182 10^3/uL (150-450)
[2024-08-14 17:29] LABS: INR 0.96; PARTIAL THROMBOPLASTIN TIME 24.6 SECONDS (24.8-34.2); PROTHROMBIN TIME 13.1 SECONDS (12.5-14.5)
== END ==
LOC: M LAB 16:28
PROVIDERS: ATTEND Physician Assistant
DX: Z01.818 Encounter for other preprocedural examination (principal)

== ENCOUNTER → 2024-11-20 | Outpatient (CLI) | payer OTHER ==
[2024-11-20 13:44] LABS: BLOOD UREA NITROGEN 17 MG/DL (9-23); CALCIUM LEVEL 9.5 MG/DL (8.3-10.6); CARBON DIOXIDE LEVEL 30 MMOL/L (20-31); CHLORIDE LEVEL 106 MMOL/L (98-107); CHOLESTEROL LEVEL 113 MG/DL (<200); CHOLESTEROL RISK RATIO 3.77 (<5); CREATININE FOR GFR 0.54 MG/DL (0.70-1.30); GLOMERULAR FILTRATION RATE > 60.0 (>49); GLUCOSE, FASTING 154 MG/DL (74-106); HDL CHOLESTEROL 29.9 MG/DL (>40); LDL CHOLESTEROL 55.1 MG/DL (<100); NON-HDL-C 83.1 MG/DL; POTASSIUM SERUM 4.4 MMOL/L (3.5-5.1); SODIUM LEVEL 143 MMOL/L (136-145); TRIGLYCERIDES LEVEL 140 MG/DL (<150)
[2024-11-20 13:47] LABS: FREE T4 1.32 NG/DL (0.89-1.76); THYROID STIMULATING HORMONE 1.674 uIU/ML (0.55-4.78)
[2024-11-20 14:01] LABS: CREATININE, URINE 36.5 MG/DL
== END ==
LOC: M WUC 10:12
PROVIDERS: ATTEND Nurse Practitioner Family
DX: E11.65 Type 2 diabetes mellitus with hyperglycemia (principal)

== ENCOUNTER 2024-12-14 08:34 | Day surgery (SDC) | payer OTHER ==
[~2024-12-14] VITALS: Ht 182.9 cm; Wt 110.7 kg
[~2024-12-14 08:34] MED LIST changes: +JARD1TAB3 PO
[2024-12-14] MEDS ORDERED: LIDOCAINE 2% 100MG/5ML SDV (FOR ANES.) As Ordered ONE (09:00)
[2024-12-14] MEDS ORDERED: propofoL 200 MG/20 ML VIAL As Ordered ONE (09:00)
[2024-12-14 10:55] VITALS: TEMP 98.2
[2024-12-14 11:10] VITALS: BP 125/77; O2SAT 95
== END 2024-12-14 11:25 | disposition home or self-care (01) ==
LOC: M OPP 08:34
PROVIDERS: ATTEND Surgery
DX: Z12.11 Encounter for screening for malignant neoplasm of colon (principal); K57.30 Diverticulosis of large intestine without perforation or abscess without bleeding; K44.9 Diaphragmatic hernia without obstruction or gangrene; K31.89 Other diseases of stomach and duodenum; K30 Functional dyspepsia; G47.30 Sleep apnea, unspecified; Z91.018 Allergy to other foods; Z91.048 Other nonmedicinal substance allergy status; Z79.84 Long term (current) use of oral hypoglycemic drugs; Z79.899 Other long term (current) drug therapy

== ENCOUNTER → 2024-12-18 | Outpatient (CLI) | payer OTHER ==
[2024-12-18 13:14] LABS: ALBUMIN 4.2 G/DL (3.2-5.2); ALKALINE PHOSPHATASE 89 U/L (40-129); ALT/SGPT 58 U/L (7.0-40); AST/SGOT 25 U/L (<34); BILIRUBIN,TOTAL 0.7 MG/DL (0.3-1.2); BLOOD UREA NITROGEN 19 MG/DL (9-23); CALCIUM LEVEL 9.5 MG/DL (8.3-10.6); CARBON DIOXIDE LEVEL 29 MMOL/L (20-31); CHLORIDE LEVEL 101 MMOL/L (98-107); CHOLESTEROL LEVEL 109 MG/DL (<200); CREATININE FOR GFR 0.67 MG/DL (0.70-1.30); GLOMERULAR FILTRATION RATE > 60.0 (>49); GLUCOSE, FASTING 176 MG/DL (74-106); HDL CHOLESTEROL 21.8 MG/DL (>40); NON-HDL-C 87.2 MG/DL; POTASSIUM SERUM 5.4 MMOL/L (3.5-5.1); SODIUM LEVEL 139 MMOL/L (136-145); TOTAL 25(OH) VITAMIN D 50.3 NG/ML (20.0-100.0); TOTAL PROTEIN 7.8 G/DL (5.7-8.2); TRIGLYCERIDES LEVEL 473 MG/DL (<150)
[2024-12-18 13:36] LABS: HEMOGLOBIN A1c 8.8 % (4.0-6.0)
== END ==
LOC: M WUC 08:04
PROVIDERS: ATTEND Family Medicine
DX: E55.9 Vitamin D deficiency, unspecified (principal); I10 Essential (primary) hypertension; E11.42 Type 2 diabetes mellitus with diabetic polyneuropathy

== ENCOUNTER → 2025-05-03 | Outpatient (REF) | payer OTHER | LOC: M LAB REF 17:15 | PROVIDERS: ATTEND Podiatrist | DX: L03.032 Cellulitis of left toe (principal) ==

== ENCOUNTER → 2025-05-24 | Outpatient (CLI) | payer OTHER | LOC: M RAD 11:28 | PROVIDERS: ATTEND Podiatrist | DX: M79.662 Pain in left lower leg (principal) ==

== ENCOUNTER → 2025-05-24 | Outpatient (REF) | payer OTHER | LOC: M LAB REF 17:04 | PROVIDERS: ATTEND Podiatrist | DX: L03.032 Cellulitis of left toe (principal) ==

== ENCOUNTER → 2025-05-29 | Outpatient (CLI) | payer OTHER ==
[2025-05-29 14:07] LABS: PLATELET COUNT, AUTOMATED 180 10^3/uL (150-450)
[2025-05-29 14:47] LABS: ALT/SGPT 40 U/L (7.0-40); AST/SGOT 24 U/L (<34); CALCIUM LEVEL 9.3 MG/DL (8.3-10.6); CARBON DIOXIDE LEVEL 27 MMOL/L (20-31); CHLORIDE LEVEL 102 MMOL/L (98-107); CREATININE FOR GFR 0.63 MG/DL (0.70-1.30); GLOMERULAR FILTRATION RATE > 90.0 (>49); POTASSIUM SERUM 3.9 MMOL/L (3.5-5.1); SODIUM LEVEL 142 MMOL/L (136-145)
== END ==
LOC: M WUC 10:27
PROVIDERS: ATTEND Nurse Practitioner Family
DX: E11.65 Type 2 diabetes mellitus with hyperglycemia (principal)

== ENCOUNTER → 2025-06-11 | Outpatient (CLI) | payer OTHER ==
[~2025-06-11] MED LIST changes: +ERGO500029 PO; +FAMO40TA3 PO; -IBUP-1022 PO; +IBUP600T42 PO; +LISI20TA33 PO; +MAGN400T33 PO; +METF-838 PO; +MINO100C4 PO; +NEUR300C PO; +NEUR600T PO; +ROSU10TA61 PO; +TIRZ15PE SC; +ZINC50CA4 PO; +ZYRTTAB8 PO
[2025-06-11 13:09] LABS: ALT/SGPT 38 U/L (7.0-40); AST/SGOT 25 U/L (<34); CALCIUM LEVEL 9.9 MG/DL (8.3-10.6); CARBON DIOXIDE LEVEL 25 MMOL/L (20-31); CHLORIDE LEVEL 103 MMOL/L (98-107); CHOLESTEROL LEVEL 87 MG/DL (<200); CHOLESTEROL RISK RATIO 2.86 (<5); CREATININE FOR GFR 0.62 MG/DL (0.70-1.30); GLOMERULAR FILTRATION RATE > 90.0 (>49); LDL CHOLESTEROL 32.0 MG/DL (<100); NON-HDL-C 56.6 MG/DL; POTASSIUM SERUM 5.2 MMOL/L (3.5-5.1); SODIUM LEVEL 138 MMOL/L (136-145); TRIGLYCERIDES LEVEL 123 MG/DL (<150)
== END ==
LOC: M WUC 08:55
PROVIDERS: ATTEND Family Medicine
DX: E78.1 Pure hyperglyceridemia (principal); I10 Essential (primary) hypertension